=== PATIENT | female | born 1950 | race Caucasian/White ===

== ENCOUNTER → 2016-12-17 | Outpatient (CLI) | payer MEDICARE, OTHER ==
--- NOTE | ~2016-12-17 | PUL ---
PATIENT'S NAME: BRIGIDO SAENZ I [facility] AGE: 66 Y [address] ROOM: [place] [id number] LOCATION: [facility] ([facility]) ADMIT DATE: 12/17/2016 Pulmonary DISCHARGE DATE: FAMILY PHYSICIAN: Juli Krause MD ATTENDING PHYSICIAN: Juli Krause NAME OF PROCEDURE: Sleep Study PROCEDURE DATE: 12/17/16 TECH: CARMELITA Chopra TEST #: [facility] [place] [id number] TECHNICAL PARAMETERS: The patient was studied using International 10/20 measuring system. While the patient was studied, there was continuous monitoring of EEG (8 leads), EOG (2 leads), EKG (3 leads), submental EMG (3 leads), tibial (4 leads), respiratory inductive plethysmography (RIP) for thoracic and abdominal effort, oral and nasal airflow with a thermocouple and pressure transducer, and oximetry. The marine electronics technician also performed visual and auditory observations noting things like body position, patient's status, breath sounds, artifact, snoring level and patient comments. Continuous sound was monitored using a 2-way speaker system and video monitoring was performed using an infrared camera. Review of the entire study was performed epoch by epoch utilizing a single epoch and multiple epoch capability sleep system. MEDICAL HISTORY: Patient is a 66-year-old overweight woman with daytime sleepiness and snoring. SLEEP STAGE SUMMARY: The patient was studied for 440 minutes of which she slept 411 minutes. She fell asleep in 5 minutes and slept for 93% of the night. Sleep architecture was unremarkable. RESPIRATORY SUMMARY: Oxygen saturations ranged from 81-93%. This study was done to titrate CPAP which was started at 6 cm and titrated to 12 cm with good control of the respiratory events. EKG SUMMARY: No dysrhythmias. LIMB MOVEMENT SUMMARY: No clinically relevant periodic limb movements were noted. SUMMARY: Obstructive sleep apnea responsive to CPAP at 12 cm. PLAN: Suggest CPAP at 12 cm. The patient will receive results from the PATIENT'S NAME: BRIGIDO SAENZ I [facility] AGE: 66 Y [address] ROOM: [place] [id number] LOCATION: [facility] ([facility]) ADMIT DATE: 12/17/2016 Pulmonary DISCHARGE DATE: FAMILY PHYSICIAN: Juli Krause MD ATTENDING PHYSICIAN: Juli Krause ordering provider. MD Lindsey GRANADO /[id number] dtt: 01/09/17 0824 [place] David E. dtd: 12/19/16 1328
== END | disposition disaster alternative care site (69) ==
LOC: GSLP 19:46
DX: G47.33 Obstructive sleep apnea (adult) (pediatric) (principal)